=== PATIENT | male | born 1980 | race Caucasian/White ===

== ENCOUNTER 2018-05-08 23:32 | Emergency (ER) | payer OTHER ==
[2018-05-09 01:15] LABS: BASO # 0.1 K/uL (0.0-0.2); BASO % 0.5 % (0.0-2.0); EOS % 0.4 % (0.0-4.0); HEMOGLOBIN 15.3 g/dL (12.0-18.0); LYMPH # 0.7 K/uL (1.0-4.3); LYMPH % 6.1 % (20.0-40.0); MEAN CORPUSCULAR HEMOGLOBIN 29.1 pg (27.0-31.0); MEAN CORPUSCULAR HGB CONC 33.5 g/dL (33.0-37.0); MEAN PLATELET VOLUME 9.5 fl (7.2-11.7); MONO # 0.3 K/uL (0.0-0.8); MONO % 2.2 % (0.0-10.0); NEUT # 10.5 K/uL (1.8-7.0); NEUT % 90.8 % (50.0-75.0); NRBC % 0.1 % (0.0-0.0); PLATELET COUNT 180 K/uL (130-400); RBC 5.26 Mil/uL (4.40-5.90); RED CELL DISTRIBUTION WIDTH 13.1 % (11.5-14.5); WHITE BLOOD COUNT 11.5 K/uL (4.8-10.8)
[2018-05-09 01:21] LABS: URINE BILIRUBIN NEGATIVE (NEGATIVE); URINE BLOOD NEGATIVE (NEGATIVE); URINE CLARITY CLEAR (Clear); URINE COLOR YELLOW (YELLOW); URINE GLUCOSE (UA) NEG (NEGATIVE); URINE LEUKOCYTE ESTERASE NEG Leu/uL (Negative); URINE PROTEIN NEGATIVE (NEGATIVE); URINE UROBILINOGEN 0.2-1.0 mg/dL (0.2-1.0)
[2018-05-09 01:23] LABS: ALB/GLOB RATIO 1.2 (1.0-2.1); ALBUMIN 4.6 g/dL (3.5-5.0); ALT/SGPT 35 U/L (21-72); AST/SGOT 29 U/L (17-59); BLOOD UREA NITROGEN 13 mg/dl (9-20); CALCIUM 9.7 mg/dL (8.4-10.2); GFR NON-AFRICAN AMERICAN > 60
[2018-05-09 01:43] LABS: BARBITURATES, UR NEGATIVE (NEGATIVE); BENZODIAZEPINES, UR NEGATIVE (NEGATIVE); OPIATES, UR NEGATIVE (NEGATIVE); PHENCYCLIDINE, UR NEGATIVE (NEGATIVE)
[2018-05-09] MEDS ORDERED: Sodium Chloride 0.9% 1,000 ML IV ONE (01:50)
[2018-05-09 02:49] LABS: BANDS 7 % (0-2); LYMPHOCYTE 8 % (20-50); MONOCYTE 3 % (0-10); NEUTROPHIL 82 % (42-75); TOTAL CELLS COUNTED 100
[2018-05-09 02:50] LABS: PLATELET ESTIMATE NORMAL (NORMAL)
--- NOTE | 2018-05-09 04:01 | ED PDOC ---
Syncope/Near Syncope/Dizziness Time Seen by Provider: 05/08/18 23:51 Chief Complaint (Nursing): Syncope Chief Complaint (Provider): Exhaustion History Per: Patient History/Exam Limitations: no limitations Onset/Duration Of Symptoms: Days, Gradual Current Symptoms Are (Timing): Better (Pt presents to the ED after collapsing during a transcontinental flight in the rest room. Pt indicates that he feels tired and travels a great deal, including returngin from [place] last week and returning to [place] via [place] this week. Pt denies fever, NVD and ill contacts) Past Medical History Reviewed: Historical Data, Nursing Documentation, Vital Signs Vital Signs: Last Vital Signs Temp 98.2 F 05/08/18 23:39 Pulse 108 H 05/08/18 23:39 Resp 20 05/08/18 23:39 BP 128/80 05/08/18 23:39 Pulse Ox 96 05/08/18 23:39 - Family History Family History: States: Unknown Family Hx - Allergies Allergies/Adverse Reactions: Allergies Allergy/AdvReac Type Severity Reaction Status Date / Time No Known Allergies Allergy Verified 05/08/18 23:39 Review of Systems ROS Statement: Except As Marked, All Systems Reviewed And Found Negative Neurological: Positive for: Other (ehaustion) Physical Exam - Reviewed Nursing Documentation Reviewed: Yes Vital Signs Reviewed: Yes - Physical Exam Appears: Positive for: Well, Non-toxic, No Acute Distress. Negative for: Uncomfortable Head Exam: Positive for: ATRAUMATIC, NORMAL INSPECTION Skin: Positive for: Normal Color, Warm, Dry. Negative for: Diaphoresis, Pallor, Rash Eye Exam: Positive for: Normal appearance, EOMI, PERRL. Negative for: Nystagmus, Periorbital swelling, Periorbital tenderness ENT: Positive for: Normal ENT Inspection Neck: Positive for: Normal, Painless ROM, Supple. Negative for: Decreased ROM Cardiovascular/Chest: Positive for: Regular Rate, Rhythm Respiratory: Positive for: Normal Breath Sounds Pulses-Carotid (L): 2+ Pulses-Carotid (R): 2+ Pulses-Radial (L): 2+ Pulses-Radial (R): 2+ Gastrointestinal/Abdominal: Positive for: Normal Exam Neurologic/Psych: Positive for: Alert, cooler man II-XII, Mood/Affect. Negative for: Motor/Sensory Deficits, Aphasia - Laboratory Results Result Diagrams: 05/09/18 01:11 05/09/18 01:11 Lab Results: Troponin I < 0.0120 ng/mL (0.00-0.120) 05/09/18 01:11 Total Bilirubin 0.5 mg/dl (0.2-1.3) 05/09/18 01:11 AST 29 U/L (17-59) 05/09/18 01:11 ALT 35 U/L (21-72) 05/09/18 01:11 Alkaline Phosphatase 85 U/L (38-126) 05/09/18 01:11 Total Protein 8.3 G/DL (6.3-8.2) H 05/09/18 01:11 Albumin 4.6 g/dL (3.5-5.0) 05/09/18 01:11 Globulin 3.7 gm/dL (2.2-3.9) 05/09/18 01:11 Albumin/Globulin Ratio 1.2 (1.0-2.1) 05/09/18 01:11 Urine Color Yellow (YELLOW) 05/09/18 01:11 Urine Clarity Clear (Clear) 05/09/18 01:11 Urine pH 7.0 (5.0-8.0) 05/09/18 01:11 Ur Specific [place] 1.006 (1.003-1.030) 05/09/18 01:11 Urine Protein Negative mg/dL (NEGATIVE) 05/09/18 01:11 Urine Glucose (UA) Neg mg/dL (NEGATIVE) 05/09/18 01:11 Urine Ketones Negative mg/dL (NEGATIVE) 05/09/18 01:11 Urine Blood Negative (NEGATIVE) 05/09/18 01:11 Urine Nitrate Negative (NEGATIVE) 05/09/18 01:11 Urine Bilirubin Negative (NEGATIVE) 05/09/18 01:11 Urine Urobilinogen 0.2-1.0 mg/dL (0.2-1.0) 05/09/18 01:11 Ur Leukocyte Esterase Neg [place]/uL (Negative) 05/09/18 01:11 Urine RBC (Auto) 1 /hpf (0-3) 05/09/18 01:11 Urine Microscopic WBC 1 /hpf (0-5) 05/09/18 01:11 - ECG O2 Sat by Pulse Oximetry: 96 Medical Decision Making Medical Decision Making: I: exhaustion v syncope P: r/o significant syncopal causes CT Head EKG CBC CMP Trponin Disposition - Clinical Impression Clinical Impression: Exhaustion, Dehydration Doctor Will See Patient In The: Office Counseled Patient/Family Regarding: Diagnosis, Need For Followup - Disposition Disposition: Routine/Home Disposition Time: 04:03 Condition: STABLE Instructions: Dehydration, Adult (DC), Fatigue (DC), Fatigue Forms: [employer] (Green[place]ic)
[2018-05-09 04:16] VITALS: TEMP 100.1
[2018-05-09 04:23] VITALS: BP 108/63; PULSE 105; RESP 18; O2SAT 99
--- NOTE | 2018-05-09 08:56 | CARD ---
APPROVED REPORT Date of service: 05/08/2018 EKG Measurement Heart [id number] MD [id number] <Conclusion> Sinus tachycardia Otherwise normal ECG
--- NOTE | 2018-05-09 10:02 | RAD ---
Date of service: 05/09/2018 HISTORY: syncope COMPARISON: No prior. TECHNIQUE: Chest PA and lateral FINDINGS: LUNGS: No active pulmonary disease. PLEURA: No significant pleural effusion identified. No pneumothorax apparent. CARDIOVASCULAR: No aortic atherosclerotic calcification present. Normal cardiac size. No pulmonary vascular congestion. OSSEOUS STRUCTURES: No significant abnormalities. VISUALIZED UPPER ABDOMEN: Normal. OTHER FINDINGS: None. IMPRESSION: No acute cardiopulmonary disease appreciated.
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
== END 2018-05-09 04:18 | disposition home or self-care (01) ==
LOC: H.ER 23:32
DX: E86.0 Dehydration (principal); R53.83 Other fatigue
CPT/HCPCS: 70450; 71046; 80053; 80324; 80345; 80346; 80349; 80353; 80358; 80361; 81003; 83992; 84484; 85025; 87804; 93005; 96360; J7030